=== PATIENT | male | born 1960 | race Caucasian/White ===

== ENCOUNTER 2016-10-03 20:09 | Inpatient (IN) | payer BC, OTHER ==
[~2016-10-03] VITALS: Ht 182.9 cm; Wt 109.3 kg
[2016-10-03] MEDS ORDERED: MORPHINE SULFATE 4 MG/ML, 1ML ONE (20:29)
[2016-10-03] MEDS ORDERED: ONDANSETRON 2MG/ML, 2ML ONE (20:29)
[2016-10-03] MEDS ORDERED: ONDANSETRON 2MG/ML, 2ML IVPush ONE (20:30)
[2016-10-03] MEDS ORDERED: MORPHINE SULFATE 4 MG/ML, 1ML IVPush PRN (20:30)
[2016-10-03] MEDS ORDERED: ASPIRIN 81 MG TABLET CHEW PO ONE (20:30)
[2016-10-03] MEDS ORDERED: SODIUM CHLORIDE FLUSH 10ML SYR IVF ONE (20:30)
[2016-10-03] MEDS ORDERED: LEVO25TA4 PO (20:40)
[2016-10-03] MEDS ORDERED: LIDOCAINE 2%, 20ML ONE (20:44)
[2016-10-03] MEDS ORDERED: MIDAZOLAM 1 MG/ML, 5ML ONE (20:44)
[2016-10-03] MEDS ORDERED: HEPARIN 1,000 UNITS/ML, 10ML ONE (20:44)
[2016-10-03] MEDS ORDERED: TICAGRELOR 90 MG TABLET ONE (20:44)
[2016-10-03] MEDS ORDERED: VERAPAMIL 2.5 MG/ML, 2ML ONE (20:44)
[2016-10-03] MEDS ORDERED: FENTANYL PF 100 MCG/2ML ONE ×2 (20:44→21:14)
[2016-10-03] MEDS ORDERED: BIVALIRUDIN 250 MG ONE ×2 (20:44→21:14)
[2016-10-03] MEDS ORDERED: NITROGLYCERIN 5 MG/ML, 10ML ONE (20:44)
[2016-10-03 20:51] LABS: BLOOD UREA NITROGEN 19 mg/dL (7-18)
[2016-10-03 20:56] LABS: IS PT STATUS REG ER OR PRE ER? YES
[2016-10-03] MEDS ORDERED: ASPIRIN 81 MG TABLET CHEW ONE (21:12)
[2016-10-03] MEDS ORDERED: ASPIRIN 325 MG TABLET EC ONE (21:38)
[2016-10-03] MEDS ORDERED: ZOLPIDEM 5MG TABLET PO PRN (22:00)
[2016-10-03] MEDS ORDERED: ACETAMINOPHEN 325 MG TABLET PO PRN (22:00)
[2016-10-03] MEDS ORDERED: BIVALIRUDIN 250 MG in DEXTROSE 5% 50 ML IV SCH (22:00)
[2016-10-03] MEDS ORDERED: ONDANSETRON 2MG/ML, 2ML IVPush PRN (22:00)
[2016-10-03] MEDS: SODIUM CHLORIDE 0.9% 1,000 ML IV SCH (22:29)
[2016-10-03] MEDS: ATORVASTATIN 80 MG TABLET PO SCH (22:32)
[2016-10-03] MEDS ORDERED: BIVALIRUDIN 500 MG in DEXTROSE 5% 100 ML IV SCH (22:49)
[2016-10-03 23:00] VITALS: BP 121/75
[2016-10-04] MEDS ORDERED: HYDR50TA3 PO (00:13)
[2016-10-04] MEDS ORDERED: LEVO25TA4 PO (00:31)
[2016-10-04 04:08] VITALS: BP 114/64
[2016-10-04 04:29] LABS: BLOOD UREA NITROGEN 16 mg/dL (7-18)
[2016-10-04] MEDS: SODIUM CHLORIDE 0.9% 1,000 ML IV SCH (05:40)
[2016-10-04] MEDS ORDERED: METOPROLOL TARTRATE 25 MG TABLET PO SCH (06:00)
[2016-10-04] MEDS ORDERED: METOPROLOL TARTRATE 25 MG TABLET PO ONE (06:00)
[2016-10-04] MEDS: ASPIRIN 81 MG TABLET EC PO SCH (08:06)
[2016-10-04] MEDS: TICAGRELOR 90 MG TABLET PO SCH ×2 (08:06→21:20)
[2016-10-04 08:29] LABS: IS PT STATUS REG ER OR PRE ER? NO
[2016-10-04] MEDS: LEVOTHYROXINE 25 MCG TABLET PO SCH (10:28)
[2016-10-04 12:36] LABS: IS PT STATUS REG ER OR PRE ER? NO
[2016-10-04 14:01] VITALS: BP 127/79
[2016-10-04] MEDS: METOPROLOL TARTRATE 25 MG TABLET PO SCH (18:15)
[2016-10-04 19:57] VITALS: BP 121/76
[2016-10-04] MEDS: ATORVASTATIN 80 MG TABLET PO SCH (21:20)
[2016-10-05 01:54] VITALS: BP 113/74
[2016-10-05 04:02] VITALS: BP 113/74
[2016-10-05] MEDS: LEVOTHYROXINE 25 MCG TABLET PO SCH (05:54)
[2016-10-05] MEDS: METOPROLOL TARTRATE 25 MG TABLET PO SCH (05:55)
[2016-10-05 06:18] LABS: BLOOD UREA NITROGEN 17 mg/dL (7-18)
[2016-10-05] MEDS ORDERED: ASPI-621 PO (08:32)
[2016-10-05] MEDS ORDERED: METO25TA35 PO (08:32)
[2016-10-05] MEDS ORDERED: TICA90TA PO (08:32)
[2016-10-05] MEDS ORDERED: ATOR80TA75 PO (08:32)
[2016-10-05] MEDS: TICAGRELOR 90 MG TABLET PO SCH (08:38)
[2016-10-05] MEDS: ASPIRIN 81 MG TABLET EC PO SCH (08:38)
[2016-10-05 08:43] VITALS: BP 131/89
== END 2016-10-05 13:07 | disposition home or self-care (01) | DRG 247 ==
LOC: ED 20:41 → EDIP 21:38 → CCU 21:52 → 5SO 10-04 13:35
PROVIDERS: ADMIT Internal Medicine Cardiovascular Disease; ATTEND Internal Medicine Cardiovascular Disease
PROC: 027034Z Dilation of Coronary Artery, One Artery with Drug-eluting Intraluminal Device, Percutaneous Approach (ICD-10-PCS; principal; 2016-10-03)
PROC: 4A023N7 Measurement of Cardiac Sampling and Pressure, Left Heart, Percutaneous Approach (ICD-10-PCS; 2016-10-03)
PROC: B2111ZZ Fluoroscopy of Multiple Coronary Arteries using Low Osmolar Contrast (ICD-10-PCS; 2016-10-03)
DX: I21.19 ST elevation (STEMI) myocardial infarction involving other coronary artery of inferior wall (principal); I25.10 Atherosclerotic heart disease of native coronary artery without angina pectoris; E03.9 Hypothyroidism, unspecified; E66.9 Obesity, unspecified; E78.1 Pure hyperglyceridemia; E78.5 Hyperlipidemia, unspecified; I10 Essential (primary) hypertension; I25.82 Chronic total occlusion of coronary artery; Z87.891 Personal history of nicotine dependence; Z68.32 Body mass index [BMI] 32.0-32.9, adult
CPT/HCPCS: 36415; 71010; 80047; 80048; 80061; 82040; 83690; 84484; 85014; 85025; 87081; 93005; 93306; 96374; 96375; 99156; 99157; C1760; C1769; C1894; J0583; J1644; J2250; J2405; J3010; J3490; C1725; C1874; C1887; J7030; Q9967